=== PATIENT | female | born 1960 ===

== ENCOUNTER 2019-09-29 13:00 | Outpatient (RCR) | payer BC, SELFPAY ==
[2019-09-08 08:31] VITALS: BMI 41.8
[2019-09-08 08:35] VITALS: BMI 41.8
== END 2019-12-07 23:59 | disposition home or self-care (01) ==
LOC: ANHDMC 13:00
PROVIDERS: Visit Provider Internal Medicine
DX: E11.40 Type 2 diabetes mellitus with diabetic neuropathy, unspecified (principal); Z71.3 Dietary counseling and surveillance; Z71.89 Other specified counseling
CPT/HCPCS: 97802; G0108